=== PATIENT | female | born 1960 | race Caucasian/White ===

== ENCOUNTER → 2016-08-11 | Outpatient (CLI) | payer MEDICAID, MEDICARE ==
[~2016-08-11] MED LIST: ALLO100T PO; BIMA2.5D4 OP; BUPR300T PO; CLOZ100T PO; DARI15TA4 PO; FERR27TA PO; GLIM4TAB56 PO; LINA290C PO; LISI10TA PO; LUBI24CA PO; MTF500T PO; OMEP20TA2 PO; OXYB15TA PO; PANT40TA2 PO; PGLT30T PO; PRV20T PO; RNT150T PO; VENL150C PO; VENL75TA2 PO; ZLP10T PO; [UNRECOGNIZED DRUG - OTHER] PO; [UNRECOGNIZED DRUG - REMARK]
--- NOTE | 2016-08-11 11:40 | Diagnostic Imaging Report ---
Renal ultrasound. INDICATION: Chronic renal disease. Correlation with CT from 03/14/2015. FINDINGS: The right kidney is 10.3 and the left kidney is 9.5 cm in length. There is thinning of the cortex in the left kidney. There are also simple cysts seen in the left kidney up to 1.5 cm inferiorly and 1 cm in the upper pole. No hydronephrosis on either side. Ureteric jets are seen in the bladder bilaterally with no focal bladder mass seen. IMPRESSION: Mild to moderate atrophy of the left renal parenchyma. No hydronephrosis. Dictated by: Dictated on workstation # [id number]
== END ==
LOC: RAD 10:15
PROVIDERS: ATTEND Internal Medicine Nephrology
DX: N18.3 Chronic kidney disease, stage 3 (moderate) (principal)
CPT/HCPCS: 76770

== ENCOUNTER → 2017-08-31 | Outpatient (CLI) | payer MEDICAID, MEDICARE | LOC: RAD 15:30 | PROVIDERS: ATTEND Family Medicine | DX: Z12.31 Encounter for screening mammogram for malignant neoplasm of breast (principal) | CPT/HCPCS: 77067 ==

== ENCOUNTER → 2018-04-26 | Outpatient (CLI) | payer MEDICARE, MEDICAID ==
--- NOTE | 2018-04-26 14:11 | Diagnostic Imaging Report ---
CLINICAL INDICATION: Patient with chronic kidney disease. EXAM: Ultrasound of both kidneys. COMPARISON: Ultrasound of both kidneys dated 04/22/2017. FINDINGS: There is interval development of mild right renal hydronephrosis and stable mild to moderate left hydronephrosis. There is a 1.3 cm cyst involving the upper aspect of the left kidney and a 1.7 cm cyst involving the inferior pole of the left kidney which have not significantly changed in the interim. The right kidney measures 10.4 cm in craniocaudal dimension and the left kidney measures 8.5 cm in craniocaudal dimension. Size discrepancy of the right and left kidneys was also noted on the prior study which previously measured 10.8 cm and 9.3 cm, respectively. There is lobulated appearance of the bladder again seen which may be related to multiple bladder diverticula. Right ureteral jet is seen. Left ureteral jet is not seen. IMPRESSION: 1: There is development of mild right hydronephrosis. 2: There is mild to moderate left hydronephrosis which is not significantly changed. 3: Stable left renal cysts. Again seen small left kidney. 4: Again seen lobulated bladder wall which may be related to multiple bladder diverticulum. Dictated by: Dictated on workstation # [id number]
== END ==
LOC: RAD 13:01
PROVIDERS: ATTEND Internal Medicine Interventional Cardiology
DX: N13.30 Unspecified hydronephrosis (principal); N18.4 Chronic kidney disease, stage 4 (severe); N28.1 Cyst of kidney, acquired; N32.9 Bladder disorder, unspecified
CPT/HCPCS: 76770